=== PATIENT | male | born 1985 | race African-American/Black ===

== ENCOUNTER 2025-05-02 04:49 | Emergency (ER) | payer MEDICAID ==
[~2025-05-02] VITALS: Ht 167.6 cm; Wt 74.8 kg
[2025-05-02 05:00] VITALS: BP 128/76
[2025-05-02] MEDS ORDERED: DIPH25CA83 PO (05:15)
[2025-05-02] MEDS ORDERED: PRED50TA PO (05:15)
[2025-05-02] MEDS ORDERED: diphenhydrAMINE 25 MG CAP PO ONE (05:19)
[2025-05-02] MEDS: diphenhydrAMINE 25 MG CAP PO ONE (05:19)
[2025-05-02 05:46] VITALS: BP 128/76; TEMP 209.7; O2SAT 97
== END 2025-05-02 05:47 | disposition home or self-care (01) ==
LOC: ER 05:06
DX: L40.9 Psoriasis, unspecified (principal); R21 Rash and other nonspecific skin eruption; F17.210 Nicotine dependence, cigarettes, uncomplicated; Z79.52 Long term (current) use of systemic steroids
CPT/HCPCS: 99283; Q0163; J7512; A4606; A4663

== ENCOUNTER 2025-06-01 22:20 | Emergency (ER) | payer MEDICAID ==
[~2025-06-01] VITALS: Ht 167.6 cm; Wt 74.8 kg
[2025-06-01 22:15] VITALS: BP 147/50
[~2025-06-01 22:20] MED LIST: DIPH25CA83 PO; PRED50TA PO
[2025-06-02 00:08] LABS: PLATELET COUNT (AUTO) 316 K/uL (152-348); RED BLOOD CELL COUNT(AUTO) 4.37 MIL/uL (4.06-5.63); RED CELL DISTRIBUTION WIDTH 14.1 % (12.1-16.2); WHITE BLOOD COUNT (AUTO) 14.0 K/uL (3.6-10.2)
[2025-06-02 00:13] LABS: CREATININE 1.1 mg/dL (0.6-1.3); SODIUM SERUM 139.0 mmol/L (136-145); UREA NITROGEN, BLOOD 9.0 mg/dL (7-18)
[2025-06-02] MEDS: CLINDAMYCIN PHOSPHATE IV 600 MG in IV DEXTROSE 5% 100 ML IV ONE (00:16)
[2025-06-02 00:18] LABS: ASPARTATE AMINOTRANSFERASE 32.0 U/L (15-37); TOTAL PROTEIN, SERUM 7.4 g/dL (6.4-8.2)
[2025-06-02] MEDS ORDERED: TRIA60LO7 TP (02:58)
[2025-06-02] MEDS ORDERED: CLIN-118 PO (02:58)
[2025-06-02 03:12] VITALS: BP 147/50; O2SAT 98
== END 2025-06-02 03:13 | disposition home or self-care (01) ==
LOC: ER 22:20
DX: R21 Rash and other nonspecific skin eruption (principal); F17.210 Nicotine dependence, cigarettes, uncomplicated; L29.9 Pruritus, unspecified; Z79.52 Long term (current) use of systemic steroids
CPT/HCPCS: 99285; 93970; 36415; 96365; 80053; 85025; 87040; J3490; A4606; A4663